=== PATIENT | male | born 1955 | race Caucasian/White ===

== ENCOUNTER 2017-08-11 13:39 | Emergency (ER) | payer BC ==
--- NOTE | 2017-08-11 14:45 | UC ---
Dental HPI - HPI Summary HPI Summary: 62 y/o male presents to the urgent care c/o toothache in his lower Rt jaw for the past week. Pain is 2-3/10 on and off and exacerbated w/ chewing and radiating to the RT ear. Pt has an appt w/ his Dentist next Monday. Gum around the tooth is red and swollen. and he has cavities. Pt denies fever, trismus, SOB, PAIGE, chest pain, abdominal pain, N/V/D - History of Current Complaint Stated Complaint: DENTAL COMP Time Seen by Provider: 08/11/17 14:43 Hx Obtained From: Patient Onset/Duration: Gradual Onset, Lasting Weeks - 1 week, Still Present, Worse Since - today Severity: Mild Pain Intensity: 3 Pain Scale Used: 0-10 Numeric Aggravating Factor(s): Chewing Alleviating Factor(s): OTC Meds - Allergies/Home Medications Allergies/Adverse Reactions: Allergies Allergy/AdvReac Type Severity Reaction Status Date / Time No Known Allergies Allergy Verified 08/11/17 14:48 Home Medications: Home Medications Lisinopril TAB* [Prinivil TAB 10 MG*] 10 mg PO DAILY 08/11/17 [History Confirmed 08/11/17] Spironolactone 25 mg PO DAILY 08/11/17 [History Confirmed 08/11/17] hydroCHLOROthiazide [Hydrochlorothiazide] 12.5 mg PO DAILY 08/11/17 [History Confirmed 08/11/17] PMH/Surg Hx/FS Hx/Imm Hx Previously Healthy: Yes Cardiovascular History: Hypertension - Family History Known Family History: Positive: Hypertension - Social History Occupation: Employed Full-time Lives: With Family Review of Systems Constitutional: Negative Skin: Negative Eyes: Negative ENT: Dental Pain, Ear Ache - Rt ear pain Respiratory: Negative Cardiovascular: Negative Gastrointestinal: Negative Genitourinary: Negative Motor: Negative Neurovascular: Negative Musculoskeletal: Negative Neurological: Negative Psychological: Negative Is Patient Immunocompromised?: No All Other Systems Reviewed And Are Negative: Yes Physical Exam - Summary Physical Exam Summary: Vital Signs Reviewed: Yes General: well developed. well nourished male sitting in the examining table w/o any apparent distress Eyes: Positive: Conjunctiva Clear - PERRLA, EOMI, fundi grossly normal ENT: Positive: Normal ENT inspection, Hearing grossly normal, Pharyngeal erythema, TMs normal, Uvula midline. Negative: Tonsillar swelling, Tonsillar exudate, Trismus Dental: Positive: Percussion Tenderness @ - molar 30 and is mildly loose, mild Abscess @ - molar 30, anterior Cervical Lymphadenopathy - B/L anterior, Neck: Positive: Supple, Nontender Respiratory: Positive: Chest non-tender, Lungs clear, Normal breath sounds, No respiratory distress Cardiovascular: Positive: RRR, No Murmur, Pulses Normal, Brisk Capillary Refill Abdomen Description: Positive: Nontender, No Organomegaly, Soft. Negative: CVA Tenderness (R), CVA Tenderness (L) Bowel Sounds: Positive: Present Musculoskeletal: Positive: Strength Intact, ROM Intact, No Edema Neurological Exam: Normal Psychological Exam: Normal Skin Exam: Normal Triage Information Reviewed: Yes Dental Complaint Course/Dx - Course Course Of Treatment: 62 y/o male presents to the urgent care c/o toothache in his lower Rt jaw for the past week. Pain is 2-3/10 on and off and exacerbated w / chewing and radiating to the RT ear. Pt has an appt w/ his Dentist next Monday. Gum around the tooth is red and swollen. and he has cavities. Pt denies fever, trismus, SOB, PAIGE, chest pain, abdominal pain, N/V/D. Hx obtained. Pt w/ Percussion Tenderness @ - molar 30 and is mildly loose, mild Abscess @ - molar 30, anterior Cervical Lymphadenopathy - B/L anterior on examiantion.Pt Rx viscous Lidocaine,Clindamycin Po and Ibuprofen PO for pain. Strongly advised to f/u with Dentist as soon as possible further evaluation and treatment.Pt's BP is elevated today advised to decrease salt in diet, monitor BP and f/u with PCP for further management. Pt understood and agreed with plan of care. Left the clinic ambulating. - Differential Dx/Diagnosis Differential Diagnosis/Dx: Dental Abscess, Dental Caries, Peridontic Disease, Pharyngitis, Tonsillitis Provider Diagnoses: 1- Dental abscess around molar #30. 2-Toothache. 3- Uncontrolled HTN Discharge - Sign-Out/Discharge Documenting (check all that apply): Discharge/Admit/Transfer - D/C home - Discharge Plan Condition: Stable Disposition: HOME Prescriptions: Clindamycin Cap(NF) [Clindamycin Cap 300 mg Cap(NF)] 300 mg PO TID #30 cap Ibuprofen TAB* [Motrin TAB* 800 MG] 800 mg PO Q6H PRN #30 tab PRN Reason: dental pain Lidocaine 2% VISCOUS* [Xylocaine 2% Viscous*] 15 ml SWISH SPIT Q6H PRN #1 btl PRN Reason: dental pain Patient Education Materials: Dental Abscess (ED), Low-Sodium Diet (ED), Toothache (ED) Referrals: Erin ARCHULETA,Bc [Primary Care Provider] - 2 Days Additional Instructions: 1-Please take full course of antibiotic to avoid resistance. Take the viscous lidocaine as directed prn only for 2 days 2- Take Ibuprofen as instructed after meals to alleviate pain and swelling. 3- F/u with your Dentist or Dental List provided as soon as possible for further treatment. 4- If symptoms do not improve or worsen please return to the urgent care or f/u with your PCP for further evaluation and treatment 5-Your BP is elevated today. please decrease salt in your diet, monitor BP and if it continues to be elevated please f/u with your PCP for further management - Billing Disposition and Condition Condition: STABLE Disposition: Home
== END 2017-08-11 15:17 | disposition home or self-care (01) ==
LOC: UCCORT 13:39
DX: K04.7 Periapical abscess without sinus (principal); I10 Essential (primary) hypertension
CPT/HCPCS: 99202; G0463